=== PATIENT | female | born 1960 | race Caucasian/White ===

== ENCOUNTER 2017-06-06 11:03 | Day surgery (SDC) | payer BC, OTHER ==
[~2017-06-06] VITALS: Ht 167.6 cm; Wt 71.5 kg
[~2017-06-06 11:03] MED LIST: AMLO-145 PO; ATOR20TA38 PO; CLON-379 PO; DOCU100T PO; FAMO20TA18 PO; OMEP40CA6 PO; SUMA100T4 PO; TRAZ50TA18 PO
[2017-06-06 12:13] VITALS: Ht 167.6 cm; Wt 71.5 kg
[2017-06-06 13:55] VITALS: BP 130/77; PULSE 65; RESP 18
[2017-06-06] MEDS ORDERED: MIDAZOLAM 1 MG/ML 2 ML INJ ONE ×2 (14:53)
[2017-06-06] MEDS ORDERED: FENTAnyl 50 MCG/ML VIAL ONE (14:53)
[2017-06-06 15:07] VITALS: BP 102/78; PULSE 63; RESP 12
--- NOTE | 2017-06-07 05:30 | GILP ---
DATE OF PROCEDURE: 06/06/2017 PROCEDURES PERFORMED: 1. Esophagogastroduodenoscopy and biopsy. 2. Colonoscopy and biopsy. SURGEON: Lashae Kim MD PREOPERATIVE DIAGNOSES: 1. Chronic heartburn. 2. Dysphagia. 3. Change in the bowel habits. POSTOPERATIVE DIAGNOSES: 1. Hiatal hernia. 2. Gastroesophageal reflux disease. 3. Gastritis with erosions. 4. Gastric mucosal biopsies were taken for Helicobacter pylori test. 5. Colonoscopy all the way to the cecum. 6. Small transverse colon polyp was removed using the biopsy forceps. 7. Internal hemorrhoids. INDICATION: The patient is a 56-year-old female patient who had chronic heartburn not responding to therapy. Patient also had a history of dysphagia. The patient had a change in the bowel habit with worsening constipation. The patient was scheduled for endoscopy and colonoscopy. The procedures and possible complications were well explained to the patient. She understood and consented to the procedures. DESCRIPTION OF PROCEDURE: Under influence of fentanyl and Versed, the gastroscope was carefully introduced into the esophagus under direct vision it was advanced to the stomach into the pylorus into the duodenal bulb, and descending duodenum. Findings in the esophagus, the patient had hiatal hernia and gastroesophageal reflux disease. Stomach, she had gastritis with erosions. Gastric mucosal biopsies were taken for Helicobacter pylori test. Duodenum was normal. The colonoscope was carefully introduced in the rectum. Under direct vision it was advanced all the way to the cecum. Findings, the patient had a small transverse colon polyp and it was removed using the biopsy forceps. The patient was noted to have internal hemorrhoids. She tolerated the procedure very well. There was no complication from the procedures. At the end of the procedures she was awake with stable vital signs and she was discharged home to the care of her family. IMPRESSION: Please see postop diagnoses. PLAN: 1. Nexium 24 hours p.o. q.a.m. 2. MiraLAX 17 g dissolved in a glass of water p.o. daily. 3. Await histopathology reports. 4. Next screening colonoscopy in 10 years. Dictated By: MD WALDEMAR Briones/ruddy/rocío /Document#: [id number]
== END 2017-06-06 19:32 | disposition home or self-care (01) ==
LOC: GIL 11:03
PROVIDERS: ATTEND Internal Medicine Gastroenterology
DX: K21.9 Gastro-esophageal reflux disease without esophagitis (principal); K44.9 Diaphragmatic hernia without obstruction or gangrene; K29.70 Gastritis, unspecified, without bleeding; D12.3 Benign neoplasm of transverse colon; K64.8 Other hemorrhoids; R13.10 Dysphagia, unspecified; R19.4 Change in bowel habit; I10 Essential (primary) hypertension
CPT/HCPCS: 43239; 45380; J2250; J3010; Z7610; 87081; 88305

== ENCOUNTER 2018-12-31 10:40 | Day surgery (SDC) | payer BC ==
[2018-12-30 15:56] VITALS: BMI 23.5
[2018-12-31] VITALS (11 sets, daily range): BP systolic 119–161; BP diastolic 72–101; PULSE 72–92; RESP 11–22; Ht 170.2 cm; Wt 67.4 kg
[~2018-12-31] VITALS: Ht 170.2 cm; Wt 67.4 kg
[~2018-12-31 10:40] MED LIST changes: -AMLO-145 PO; +CEFAZOLIN 2 GM/50 ML (PMX) 50 ML IVPB SCH; -FAMO20TA18 PO; +ROCURONIUM 50 MG INJ ONE; +SOD CHLORIDE 0.9% 1,000 ML IV SCH; +TRAZ-111 PO; -TRAZ50TA18 PO
[2018-12-31] MEDS ORDERED: AMLO5TAB4 PO (11:32)
[2018-12-31] MEDS ORDERED: SUMA100T3 PO (11:33)
[2018-12-31] MEDS ORDERED: LORA10TA3 PO (11:33)
[2018-12-31] MEDS ORDERED: ATOR20TA38 PO (11:34)
[2018-12-31] MEDS ORDERED: TOPI25TA PO (11:34)
[2018-12-31] MEDS ORDERED: CITA20TA11 PO (11:35)
[2018-12-31] MEDS ORDERED: MONT10TA24 PO (11:35)
[2018-12-31] MEDS ORDERED: FLUT16SP17 NASAL (11:36)
[2018-12-31] MEDS ORDERED: OMEP40CA6 PO (11:37)
[2018-12-31] MEDS ORDERED: ALPR0.5T6 PO (11:37)
[2018-12-31] MEDS ORDERED: BUPIVACAINE 0.25% (MPF) 30 ML INJ ONE (12:41)
--- NOTE | 2018-12-31 13:08 | PREAC ---
Date/Time of Note Date/Time of Note DATE: 12/31/18 TIME: 13:06 Anesthesia Eval and Record Evaluation Time Pre-Procedure Interview DATE: 12/31/18 TIME: 13:06 Age 58 Sex female NPO: 8 hrs Preoperative diagnosis Cholelithiasis Planned procedure Lap Cholecystectomy Past Medical History Past Medical History: Includes Cardio: HTN, Dyslipidemia GI: GERD, Morbid obesity Surgery & Anesthesia Issues No known issue Meds Anticoagulation: No Beta Ricardo within 24 hr: No Reason Beta Ricardo not given: Pt. not on B-Ricardo Reported Medications Omeprazole* (Omeprazole*) 40 Mg Capsule.dr, 40 MG PO DAILY, #30 CAP 12/31/18 Alprazolam* (Alprazolam*) 0.5 Mg Tablet, 0.5 MG PO BID PRN for ANXIETY, TAB 12/31/18 Fluticasone Propionate* (Fluticasone Propionate* Nasal) 50 Mcg/[place] - 16 Gm [place].susp, 1 SPRAY NASAL BID, #1 BOTTLE TO EACH NOSTRIL 12/31/18 Citalopram Hydrobromide* (Celexa*) 20 Mg Tablet, 20 MG PO DAILY, #30 TAB 12/31/18 Montelukast Sodium* (Montelukast Sodium*) 10 Mg Tablet, 10 MG PO QHS, #30 TAB 12/31/18 Atorvastatin Calcium* (Atorvastatin Calcium*) 20 Mg Tablet, 20 MG PO QHS, #30 TAB 12/31/18 Topiramate* (Topamax*) 25 Mg Tablet, 50 MG PO BID, TAB 12/31/18 Loratadine* (Loratadine*) 10 Mg Tablet, 10 MG PO DAILY, #30 TAB 12/31/18 Sumatriptan Succinate* (Imitrex*) 100 Mg Tablet, 100 MG PO BID PRN for MIGRAINE HEADACHE, TAB May repeat after 2 hours if needed; MAX 200 mg/24 hours 12/31/18 Amlodipine Besylate* (Norvasc*) 5 Mg Tablet, 5 MG PO DAILY PRN for ELEVATED BLOOD PRESSURE, TAB 12/31/18 Discontinued Reported Medications Omeprazole* (Omeprazole*) 40 Mg Capsule.dr, 40 MG PO DAILY, CAP 08/05/14 Clonidine Hcl* (Clonidine Hcl*) 0.1 Mg Tab, 0.1 MG PO Q8, TAB 08/05/14 Trazodone Hcl* (Trazodone Hcl*) 50 Mg Tablet, 50 MG PO HS, TAB 08/05/14 Atorvastatin Calcium* (Atorvastatin Calcium*) 20 Mg Tablet, 20 MG PO HS, TAB 08/05/14 Docusate Sodium* (Dok*) 100 Mg Tablet, 100 MG PO DAILY, CAP 08/05/14 Sumatriptan Succinate* (Sumatriptan Succinate*) 100 Mg Tablet, 100 MG PO BID for MIGRAINE HEADACHE, TAB May repeat after 2 hours if needed; MAX 200 mg/24 hours 08/05/14 Current Medications Cefazolin Sodium/ Dextrose 50 ml @ 100 mls/hr PREOP IVPB ; Start 12/31/18 at 06:00; Stop 12/31/18 at 19:00 Sodium Chloride 1,000 ml @ 75 mls/hr [id number] IV ; Start 12/31/18 at 06:00; Stop 12/31/18 at 17:00 Meds reviewed: Yes Allergies Coded Allergies: No Known Allergy (Unverified , 12/31/18) Allergies Reviewed: Yes Labs/Studies Labs Reviewed: Reviewed by anesthesiologist test: N/A Pre-procedure Exam Last vitals Vital Signs Date Temp Pulse Resp B/P (MAP) Pulse Ox O2 O2 Flow FiO2 Time Delivery Rate 12/31/18 98.3 73 18 119/72 98 Room Air 11:39 (88) Airway: Adequate mouth opening, Adequate thyromental dist Mallampati: Mallampati III Teeth: Normal Lung: Normal Heart: Normal ASA Physical Status ASA physical status: 3 Emergency: None Planned Anesthetic General/MAC: ETT Pre-operative Attestations Prior to commencing anesthesia and surgery, the patient was re-evaluated, there was verification of: *The patient's identity *The results of appropriate recent lab work and preoperative vital signs *The above evaluation not changing prior to induction *Anesthetic plan, risk benefits, alternative and complications discussed with patient/family; questions answered; patient/family understands, accepts and wishes to proceed. RIO VAZ MD Dec 31, 2018 13:08
[2018-12-31] MEDS ORDERED: MIDAZOLAM 1 MG/ML 2 ML INJ ONE (13:22)
--- NOTE | 2018-12-31 13:26 | HPN ---
Date/Time of Note Date/Time of Note DATE: 12/31/18 TIME: 13:26 Interval H&P Admission Note Pt. seen H&P reviewed: No system changes ELLIE LAWS MD Dec 31, 2018 13:26
[2018-12-31] MEDS ORDERED: ONDANSETRON 4 MG INJ ONE (14:19)
[2018-12-31] MEDS ORDERED: METOCLOPRAMIDE 10 MG INJ ONE (14:19)
[2018-12-31] MEDS ORDERED: LIDOCAINE 2% (SDV) 5 ML INJ ONE (14:21)
[2018-12-31] MEDS ORDERED: ETOMIDATE 20 MG INJ ONE (14:21)
[2018-12-31] MEDS ORDERED: PROPOFOL 20 ML ONE (14:21)
[2018-12-31] MEDS ORDERED: CEFAZOLIN 1 GM INJ ONE (14:21)
[2018-12-31] MEDS ORDERED: ROPIVACAINE 0.5 % 30 ML VIAL ONE (14:22)
[2018-12-31] MEDS ORDERED: GLYCOPYRROLATE 0.4 MG INJ ONE (14:22)
[2018-12-31] MEDS ORDERED: NEOSTIGMINE 3 MG/3 ML SYRINGE ONE (14:22)
[2018-12-31] MEDS ORDERED: HYDROCODONE/APAP (5/325) TAB PO PRN ×2 (14:30)
[2018-12-31] MEDS ORDERED: morphine 2 MG INJ IV PRN (14:30)
[2018-12-31] MEDS ORDERED: ONDANSETRON 4 MG INJ IV PRN ×2 (14:30→15:00)
--- NOTE | 2018-12-31 14:40 | OPR ---
Date/Time of Note Date/Time of Note DATE: 12/31/18 TIME: 14:34 Operative Report Procedure Date: Dec 31, 2018 Preoperative Diagnosis Cholelithiasis/chronic cholecystitis Postoperative Diagnosis Cholelithiasis/chronic cholecystitis Operation/Procedure Performed Laparoscopic cholecystectomy Surgeon see signature line [employer] None Anesthesia Type: general Anesthesiologist: RIO VAZ MD Estimated Blood Loss: minimal Transfusion none Specimen Gallbladder Grafts/Implants none Complications none Pt Condition Post Procedure: stable Disposition: PACU Indications The patient is a 58-year-old female who presented to the office with a 6-month history of right upper quadrant abdominal pain. The patient had clinical signs and symptoms of biliary colic and chronic cholecystitis which was confirmed via an ultrasound which showed the presence of gallstones. The patient was scheduled for laparoscopic cholecystectomy; possible open as definitive treatment to prevent further sequelae of gallstone disease which include but are not limited to: Gangrenous cholecystitis, choledocholithiasis, gallstone pancreatitis, ascending cholangitis, etc. All risks and benefits of the procedure including but not limited to: Wound infection, excessive bleeding, common bile duct injury, postoperative biliary leak, retained common bile duct stone, injury to intra-abdominal organs, conversion to open procedure, possible need for subsequent surgeries, etc. were all explained to the patient in full detail. She fully understood and wished to proceed with the procedure. Informed consent was therefore obtained. Procedure Description The patient was brought to the operating room and placed supine on the operating table. Bilateral sequential compression devices were placed on both lower extremities. A dose of broad-spectrum perioperative intravenous antibiotics was given. After the induction of smooth general endotracheal anesthesia the patient's abdomen was prepped and draped in the standard surgical fashion. The patient had a lower midline incision from prior surgery. After performance of the surgical timeout a 1 cm incision was made in the inferior umbilicus using an 11 blade scalpel. Blunt dissection was then done to the level of the anterior rectus fascia which was grasped between 2 Rosendo clamps. The anterior rectus fascia was incised using an 11 blade scalpel and the peritoneal cavity was entered atraumatically. 0 Vicryl stay sutures were then placed in the anterior fascia and a 12 mm trocar was placed. Pneumoperitoneum was then obtained. Diagnostic laparoscopy showed some adhesions of the omentum to the lower abdomen. There were adhesions of the liver to the anterior abdominal wall. Three further working ports were then placed a 5 mm port in the sub-xiphoid region and two 5 mm ports in the right upper quadrant. All port sites were anesthetized with 0.25% Marcaine with epinephrine prior to incision. Using atraumatic graspers the gallbladder was grasped and retracted superiorly and laterally exposing the area of Aguirre's pouch. Dissection was begun in this area using a combination of blunt dissection and hook electrocautery. The cystic duct was identified as it entered straight into the neck of the gallbladder. It was dissected free of surrounding tissues and clipped proximally and distally x 3 and transected using EndoShears. Dissection was then continued posteriorly. The cystic artery was identified and dissected free of surrounding tissues. It too was clipped proximally and distally x 3 and transected using EndoShears. The gallbladder was then dissected off the liver bed using electrocautery. Once completely free the gallbladder was placed in an Endo Catch bag and withdrawn through the umbilical port site and passed off the field as specimen. Hemostasis was then inspected for and noted to be total. The abdomen was then irrigated with several liters of warm normal saline and the irrigant returned crystal clear. Pneumoperitoneum was then released and all remaining trochars were withdrawn under direct vision. The fascia of the umbilical port site was reapproximated using 0 Vicryl sutures in [id number] fashion. Stay sutures were tied over the closure. The subcutaneous tissues were irrigated with more warm normal saline. The skin was then reapproximated using 4-0 Monocryl sutures in subcuticular fashion. The incisions were cleaned and Dermabond was applied to the incisions and the patient was awoken from anesthesia and transported to the recovery room in stable condition. All counts were correct at the end of the case x 2. ELLIE LAWS MD Dec 31, 2018 14:40
--- NOTE | 2018-12-31 14:58 | PAC ---
Date/Time of Note Date/Time of Note DATE: 12/31/18 TIME: 14:57 Post-Anesthesia Notes Post-Anesthesia Note Last documented vital signs Vital Signs Date Temp Pulse Resp B/P (MAP) Pulse Ox O2 O2 Flow FiO2 Time Delivery Rate 12/31/18 98.3 14:55 12/31/18 73 18 119/72 98 Room Air 11:39 (88) Activity: WNL Respiratory function: WNL Cardiovascular function: WNL Mental status: Baseline Pain reasonably controlled: Yes Hydration appropriate: Yes Nausea/Vomiting absent: Yes Comments BP:154/78, P:87, spo2:100%, T:98,3 RIO VAZ MD Dec 31, 2018 14:58
[2018-12-31] MEDS ORDERED: hydrALAzine 20 MG INJ IV PRN (15:00)
[2018-12-31] MEDS ORDERED: DIPHENHYDRAMINE 50 MG INJ IV PRN (15:00)
[2018-12-31] MEDS ORDERED: FENTAnyl 50 MCG/ML VIAL IV PRN (15:00)
[2018-12-31] MEDS ORDERED: LABETALOL HCL 20MG INJ IV PRN (15:00)
[2018-12-31] MEDS ORDERED: MEPERIDINE 25 MG INJ IV PRN (15:00)
[2018-12-31] MEDS ORDERED: HYDROmorphONE 1 MG/5 ML IV SYRINGE IV PRN ×2 (15:00)
== END 2018-12-31 16:42 | disposition home or self-care (01) ==
LOC: SDS 10:40
PROVIDERS: ATTEND Surgery
DX: K80.10 Calculus of gallbladder with chronic cholecystitis without obstruction (principal); I10 Essential (primary) hypertension; E78.5 Hyperlipidemia, unspecified
CPT/HCPCS: 47562; 88304; J0690; J1170; J2250; J2405; J2765; J2795; J3010; Z7512; Z7610; J2710

== ENCOUNTER 2019-09-10 22:15 | Emergency (ER) | payer BC ==
[~2019-09-10] VITALS: Ht 167.6 cm; Wt 70.4 kg
[~2019-09-10 22:15] MED LIST changes: +ALPR0.5T6 PO; +AMLO5TAB4 PO; -CEFAZOLIN 2 GM/50 ML (PMX) 50 ML IVPB SCH; +CITA20TA11 PO; -CLON-379 PO; -DOCU100T PO; +FLUT16SP17 NASAL; +LORA10TA3 PO; +MONT10TA24 PO; +OMEP40CA38 PO; -OMEP40CA6 PO; -ROCURONIUM 50 MG INJ ONE; -SOD CHLORIDE 0.9% 1,000 ML IV SCH; +SUMA100T3 PO; -SUMA100T4 PO; +TOPI25TA PO; -TRAZ-111 PO
[2019-09-10 22:18] VITALS: BP 194/108; PULSE 80; RESP 20; Ht 167.6 cm; Wt 70.4 kg
== END 2019-09-11 00:38 | disposition home or self-care (01) ==
LOC: E/R 22:15
DX: R07.89 Other chest pain (principal); I10 Essential (primary) hypertension
CPT/HCPCS: 36415; 71045; 80048; 84484; 85025; 93005; Z7502